=== PATIENT | male | born 1965 | race African-American/Black ===

== ENCOUNTER 2021-07-09 23:53 | Emergency (ER) | payer SELFPAY ==
[~2021-07-09] VITALS: Ht 182.9 cm; Wt 100.0 kg
[2021-07-09 23:55] VITALS: BP 140/93
== END 2021-07-10 00:33 | disposition left against medical advice (07) ==
LOC: ER 23:53
DX: F10.129 Alcohol abuse with intoxication, unspecified (principal); Y90.0 Blood alcohol level of less than 20 mg/100 ml; I25.10 Atherosclerotic heart disease of native coronary artery without angina pectoris
CPT/HCPCS: 93005; 99283